=== PATIENT | female | born 1990 | race Two or more races ===

== ENCOUNTER 2021-08-07 05:41 | Inpatient (IN) | payer OTHER ==
[~2021-08-07] VITALS: Ht 160 cm; Wt 2.3 kg
[2021-08-07] MEDS ORDERED: LABETALOL HCL100 MG PO (07:34)
[2021-08-07] MEDS ORDERED: IRON325 MG PO (07:35)
[2021-08-07] MEDS ORDERED: PRENATAL TABLE1 EAC3 PO (07:35)
[2021-08-07] MEDS ORDERED: FOLIC ACID20 MG PO (07:36)
[2021-08-07] MEDS ORDERED: IMURAN50 MG PO (07:36)
[2021-08-07] MEDS ORDERED: HYDROXYCHLOROQ400 MG PO (07:38)
[2021-08-07] MEDS ORDERED: CLARITIN10 MG PO (07:39)
[2021-08-07] MEDS ORDERED: LOVENOX40 MG/0.4 SUBCUTANEO (07:39)
[2021-08-07] MEDS ORDERED: CHILDREN'S ASPI81 MG PO (07:40)
== END 2021-08-10 15:02 | disposition home or self-care (01) | DRG 787 ==
LOC: OB/GYN 05:41 → LDR 05:41 → OB/GYN 11:02
PROVIDERS: ADMIT Specialist; ATTEND Specialist
PROC: 4A1HXFZ Monitoring of Products of Conception, Cardiac Rhythm, External Approach (ICD-10-PCS; 2021-08-07)
PROC: 10D00Z1 Extraction of Products of Conception, Low, Open Approach (ICD-10-PCS; principal; 2021-08-07 07:00)
DX: O11.4 Pre-existing hypertension with pre-eclampsia, complicating childbirth (principal); O99.12 Other diseases of the blood and blood-forming organs and certain disorders involving the immune mechanism complicating childbirth; D68.62 Lupus anticoagulant syndrome; O62.2 Other uterine inertia; O10.02 Pre-existing essential hypertension complicating childbirth; M35.00 Sjogren syndrome, unspecified; Z3A.37 37 weeks gestation of pregnancy; Z37.0 Single live birth